=== PATIENT | female | born 1980 | race Caucasian/White ===

== ENCOUNTER 2018-04-14 00:57 | Emergency (ER) | payer MEDICAID ==
[~2018-04-14] VITALS: Ht 149.9 cm; Wt 64.4 kg
[~2018-04-14 00:57] MED LIST: PREN-88 PO
[2018-04-14 01:36] VITALS: BP 135/90
[2018-04-14 05:45] LABS: CLARITY URINE TURBID (CLEAR); COLOR URINE RED (YELLOW); KETONES URINE 3+ (NEGATIVE); LEUKOCYTE ESTERASE URINE 3+ (NEGATIVE); NITRITE URINE POSITIVE (NEGATIVE); OCCULT BLOOD URINE 3+ (NEGATIVE); PROTEIN URINE 4+ (NEGATIVE); SPECIFIC GRAVITY URINE 1.027 (1.005-1.030)
== END 2018-04-14 03:10 | disposition left against medical advice (07) ==
LOC: ER 02:11
DX: N39.0 Urinary tract infection, site not specified (principal); R30.9 Painful micturition, unspecified; Z53.21 Procedure and treatment not carried out due to patient leaving prior to being seen by health care provider
CPT/HCPCS: 81003; 87077; 87086; 87186